=== PATIENT | female | born 1985 | race Hispanic/Latino ===

== ENCOUNTER → 2020-03-10 11:58 | Outpatient (CLI) | payer MEDICAID, SELFPAY ==
[2020-03-10 13:05] LABS: Add Manual Diff / Slide Review NO; Basophils Absolute Auto 0 /uL (0-100); Basophils Percent Auto 0.2 % (0-2); Eosinophils Absolute Auto 100 /uL (0-450); Eosinophils Percent Auto 1.4 % (2-4); Hematocrit 38.3 % (36-46); Hemoglobin 12.9 g/dL (12.0-16.0); Lymphocytes Absolute Auto 2000 /uL (1100-4500); Lymphocytes Percent Auto 24.3 % (25-40); Mean Corpuscular HGB Conc 33.6 % (30-36); Mean Corpuscular Hemoglobin 29.6 PG (26-34); Mean Corpuscular Volume 88.1 fL (80-100); Monocytes Absolute Auto 400 /uL (0-900); Monocytes Percent Auto 4.4 % (3-14); Neutrophils Absolute Auto 5700 /uL (1500-7000); Neutrophils Percent Auto 69.7 % (50-75); Platelet Count 186 X10^3/uL (150-400); Red Blood Cell Count 4.35 X10^6/uL (4.0-5.2); Red Cell Distribution Width 13.2 % (11.6-14.8); White Blood Cell Count 8.2 X10^3/uL (4.5-11.0)
[2020-03-10 13:38] LABS: Alanine Aminotransferase 12 IU/L (<35); Albumin Globulin Ratio 1.3 (1.0-2.8); Alkaline Phosphatase 70 U/L (38-126); Aspartate Aminotransferase 24 IU/L (14-36); BUN Creatinine Ratio 19.1 (6-22); Bilirubin Total 0.2 mg/dL (0.2-1.3); Blood Urea Nitrogen 9 mg/dL (7-17); Calcium 9.3 mg/dL (8.4-10.2); Carbon Dioxide 27 mmol/L (22-32); Chloride 103 mmol/L (98-107); Cholesterol 194 mg/dL (140-199); Estimated Glomerular Filt Rate > 60.0 mL/min (>60); Globulin 3.2 g/dL (1.7-4.1); Glucose 88 mg/dL (70-100); HDL Cholesterol 109 mg/dL (40-60); HEMOLYSIS < 15 (0-50); LDL Cholesterol Calculated 56 mg/dL (<100); Potassium 3.7 mmol/L (3.4-5.1); Sodium 134 mmol/L (137-145); Total Protein 7.2 g/dL (6.3-8.2); Triglycerides 143 mg/dL (35-150)
[2020-03-10 13:54] LABS: Free T4, Direct Thyroxine 1.05 ng/dL (0.78-2.19)
[2020-03-10 14:08] LABS: Thyroid Stimulating Hormone 0.637 uIU/mL (0.47-4.68)
[2020-03-10 15:09] LABS: HCG Quantitative /Beta subunit 132770 mIU/mL
== END ==
PROVIDERS: PCP Registered Nurse; Referring Provider Registered Nurse; Visit Provider Registered Nurse
DX: Z34.90 Encounter for supervision of normal pregnancy, unspecified, unspecified trimester (principal); Z13.220 Encounter for screening for lipoid disorders; R53.83 Other fatigue
CPT/HCPCS: 36415; 80053; 80061; 84439; 84443; 84702; 85025

== ENCOUNTER → 2020-03-24 13:10 | Outpatient (CLI) | payer MEDICAID, SELFPAY ==
[2020-03-24 14:05] LABS: Add Manual Diff / Slide Review NO; Basophils Absolute Auto 0 /uL (0-100); Basophils Percent Auto 0.3 % (0-2); Eosinophils Absolute Auto 200 /uL (0-450); Eosinophils Percent Auto 1.9 % (2-4); Hematocrit 38.7 % (36-46); Hemoglobin 12.9 g/dL (12.0-16.0); Lymphocytes Absolute Auto 2400 /uL (1100-4500); Lymphocytes Percent Auto 29.8 % (25-40); Mean Corpuscular HGB Conc 33.3 % (30-36); Mean Corpuscular Hemoglobin 29.5 PG (26-34); Mean Corpuscular Volume 88.6 fL (80-100); Monocytes Absolute Auto 400 /uL (0-900); Monocytes Percent Auto 4.8 % (3-14); Neutrophils Absolute Auto 5100 /uL (1500-7000); Neutrophils Percent Auto 63.2 % (50-75); Platelet Count 181 X10^3/uL (150-400); Red Blood Cell Count 4.36 X10^6/uL (4.0-5.2); Red Cell Distribution Width 13.4 % (11.6-14.8)
[2020-03-24 14:35] LABS: Appearance Urine UA CLEAR; Bilirubin Urine UA NEGATIVE (NEGATIVE); Color Urine UA YELLOW; Glucose Urine UA NEGATIVE (Negative); Ketones Urine UA NEGATIVE (NEGATIVE); Leukocyte Esterase Urine UA 1+ (NEGATIVE); Nitrite Urine UA NEGATIVE (Negative); Occult Blood Urine UA NEGATIVE (Negative); Protein Urine UA NEGATIVE (Negative); Specific Gravity Urine UA 1.015 (1.000-1.035); Urobilinogen Urine UA 0.2 E.U./dL (0.2)
[2020-03-24 14:42] LABS: Bacteria Urine None Seen; RBC Urine None Seen (0-5/HPF); pH Urine UA 5.5 (4.5-8.0)
[2020-03-24 14:44] LABS: Squamous Epithelial Cell Urine 5-10 /HPF (0-5/HPF); WBC Urine 5-10/HPF (0-5/HPF)
[2020-03-25 08:12] LABS: RPR Screen Non Reactive (Non Reactive)
[2020-03-26 03:37] LABS: Chlamydia trachomatis NAA Negative (Negative); Neisseria gonorrhoeae NAA Negative (Negative)
[2020-03-27 12:36] LABS: Varicella IgG Antibody >4000 index (Immune >165)
[2020-03-27 16:36] LABS: Hepatitis B Surface Antigen NEGATIVE s/c (NEGATIVE)
[2020-03-27 17:06] LABS: HIV 1 & 2 Ab/Ag 4th Gen Combo NEGATIVE (NEGATIVE); Hep C Virus Ab w/Reflex Quant NEGATIVE s/c (NEGATIVE)
== END ==
PROVIDERS: PCP Registered Nurse; Referring Provider Specialist; Visit Provider Specialist
DX: Z34.81 Encounter for supervision of other normal pregnancy, first trimester (principal)
CPT/HCPCS: 36415; 80055; 81003; 81015; 86787; 86803; 86850; 86900; 86901; 87086; 87389; 87491; 87591

== ENCOUNTER → 2020-04-25 11:45 | Outpatient (CLI) | payer MEDICAID, SELFPAY ==
[2020-04-27 21:54] LABS: AFP, Serum 76.7 ng/mL (.); Calc Gestational Age Ultrasound (.); Estriol, Free 2.49 ng/mL (.); Inhibin A, Dimeric 152.46 pg/mL (.); Inhibin A, MoM 0.68 (.); Maternal Ethnicity Other (.); Maternal Weight 98 lbs (.); Number of Fetuses No (.); OSBR Risk 1 IN 6301 (.); Results Report (.); Test Results *Screen Negative* (.); hCG, MoM 0.57 (.); hCG, Serum 20800 mIU/mL (.)
== END ==
PROVIDERS: PCP Registered Nurse; Referring Provider Specialist; Visit Provider Specialist
DX: Z34.82 Encounter for supervision of other normal pregnancy, second trimester (principal); Z3A.18 18 weeks gestation of pregnancy
CPT/HCPCS: 36415; 82105; 82677; 84702; 86336

== ENCOUNTER → 2020-05-23 12:37 | Outpatient (CLI) | payer MEDICAID, SELFPAY ==
--- NOTE | 2020-05-23 12:38 | DI.US.S_ITS ---
PROCEDURE: US OB >= 14 WEEKS FETUS INDICATIONS: 20 week anatomy OUTSIDE/PRIOR DATING DATA: Last menstrual period (LMP): 01/22/2020. LMP-based estimated date of delivery (CHASE): 10/28/2020 . First dating scan (date and location): 03/24/2020 . Estimated date of delivery (CHASE) from first dating scan: 09/22/2020 . TECHNIQUE: Real-time scanning was performed of the fetus, with image documentation and biometric measurements. Endovaginal scanning: No COMPARISON: [facility], , OB >= 14 WEEKS FETUS, 04/25/2020, 11:51. FINDINGS: General: A single living intrauterine gestation is present. Presentation: Variable. Placenta: Placental position is posterior , without previa. Amniotic fluid index: 20.2 cm, normal range is 5-24 cm. heart rate: 141 beats per minute. Maternal cervical canal: 3.4 cm long. Normal lower limit is 2.5 cm. biometrics: Biparietal diameter: 22 weeks 3 days Head circumference: 21 weeks 6 days Abdominal circumference: 22 weeks 1 day Femur length: 22 weeks Estimated gestational age from initial scan: 22 weeks 4 days Composite gestational age from present scan: 22 weeks 1 day Estimated weight and percentile: 473 g, 21st percentile Measurement variability for biometric dating: +/- 7 days from 14 weeks to 15 weeks 6 days gestation, +/- 10 days from 16 weeks to 21 weeks 6 days gestation, +/- 2 weeks from 22 weeks to 27 weeks 6 days gestation, +/- 3 weeks for 28 weeks gestation or later. weight reference: 4500 g or EFW >90/95% is considered macrosomia or large for gestational age. EFW <10% is small for gestational age. EFW 5% or less is considered intra-uterine growth restriction. Anatomic survey: Neuro: Ventricles are non-dilated at less than 10 mm. Cisterna magna is normal at 3-11 mm. Cerebellum is normal in size and morphology. Nuchal skin fold: Normal at less than 6 mm between 14-21 weeks gestational age. Face: Nose and lips, facial profile are normal. Spine: No evidence for spina bifida. Heart: 4-chambered heart is present, with normal ventricular outflow tracts. Diaphragm: Diaphragm is intact. Stomach: Left-sided stomach is present. Kidneys: No hydronephrosis. Normal is less than 5 mm in 2nd trimester, less than 7 mm in 3rd trimester. Cord: 3-vessel cord has orthotopic insertion. Bladder: Normal in size. Extremities: All 4 extremities identified. IMPRESSION: 1. Single living IUP redemonstrated and interval growth is normal. 2. Normal anatomic survey. Dictated by: Maury Wright [facility] Interpreted: Anup Lyons MD on 05/23/2020 at 17:21 Approved by: Anup Lyons M.D. on 05/23/2020 at 17:31
== END ==
PROVIDERS: PCP Registered Nurse; Referring Provider Specialist; Visit Provider Specialist
DX: Z34.82 Encounter for supervision of other normal pregnancy, second trimester (principal); Z3A.22 22 weeks gestation of pregnancy
CPT/HCPCS: 76811

== ENCOUNTER → 2020-06-20 10:19 | Outpatient (CLI) | payer MEDICAID, SELFPAY ==
[2020-06-20 11:50] LABS: Hematocrit 34.2 % (36-46); Hemoglobin 11.8 g/dL (12.0-16.0)
[2020-06-20 12:34] LABS: GTT (PREG) 1 Hour PP 50gm Dose 194 mg/dL (76-139)
== END ==
PROVIDERS: PCP Registered Nurse; Referring Provider Specialist; Visit Provider Specialist
DX: Z34.82 Encounter for supervision of other normal pregnancy, second trimester (principal); Z3A.25 25 weeks gestation of pregnancy
CPT/HCPCS: 36415; 82950; 85014; 85018

== ENCOUNTER → 2020-06-28 09:43 | Outpatient (CLI) | payer MEDICAID, SELFPAY ==
[2020-06-28 11:08] LABS: Glucose Fasting Gestational 86 mg/dL (76-95)
[2020-06-28 12:05] LABS: Glucose 1 Hour Gest 127 mg/dL (76-180)
[2020-06-28 13:08] LABS: Glucose 2 Hour Gest 106 mg/dL (76-155)
[2020-06-28 13:18] LABS: Glucose Tol Interp,Gestational INTERPRETATION
[2020-06-28 14:17] LABS: Glucose 3 Hour Gest 103 mg/dL (76-140)
== END ==
PROVIDERS: PCP Registered Nurse; Referring Provider Specialist; Visit Provider Specialist
DX: O99.810 Abnormal glucose complicating pregnancy (principal)
CPT/HCPCS: 36415; 82951; 82952

== ENCOUNTER 2020-07-11 13:32 | Inpatient (IN) | payer MEDICAID, SELFPAY ==
[2020-07-11] MEDS: NIFEdipine 10 MG CAPSULE PO ×4 (14:10→15:09)
[2020-07-11 14:38] LABS: Fetal Fibronectin Negative
[2020-07-11 14:39] LABS: Add Manual Diff / Slide Review NO; Basophils Absolute Auto 100 /uL (0-100); Basophils Percent Auto 0.5 % (0-2); Eosinophils Absolute Auto 0 /uL (0-450); Eosinophils Percent Auto 0.3 % (2-4); Hematocrit 37.8 % (36-46); Hemoglobin 12.7 g/dL (12.0-16.0); Lymphocytes Absolute Auto 1700 /uL (1100-4500); Lymphocytes Percent Auto 14.6 % (25-40); Mean Corpuscular HGB Conc 33.5 % (30-36); Mean Corpuscular Hemoglobin 29.3 PG (26-34); Mean Corpuscular Volume 87.5 fL (80-100); Monocytes Absolute Auto 900 /uL (0-900); Monocytes Percent Auto 7.6 % (3-14); Neutrophils Absolute Auto 9100 /uL (1500-7000); Platelet Count 168 X10^3/uL (150-400); Red Blood Cell Count 4.32 X10^6/uL (4.0-5.2); Red Cell Distribution Width 12.7 % (11.6-14.8); White Blood Cell Count 11.8 X10^3/uL (4.5-11.0)
--- NOTE | 2020-07-11 14:57 | P.TNLD_ITS ---
Visit Information Visit Information Date of evaluation: 07/11/20 Primary OB Provider: Tara Schaeffer Reason for Evaluation: Yes pre-term labor Vital Signs Vital Signs: Blood pressure 109/71, pulse 96, temperature 36.4? [facility] Family History (Updated 03/17/20 @ 12:42 by Kay Alonzo RN) Mother No problems noted. Father Family estrangement Grandmother Cancer Grandfather Cancer Smoker Grandmother No problems noted. Grandfather Family estrangement Social History marital status: unmarried,living together number of children: 2 household members: significant other and children lives independently: Yes caregiver/support person: No housing: house pets and animals: Yes (2 turtles & 1 dog: safe & calm.) education level: other (did not go to school.) occupational status: unemployed current occupational exposures/hazards: No special luiza needs: No seatbelt use: always Smoking Status: Never smoker second hand exposure: No alcohol intake: never substance use type: does not use during the past year weight has: remained stable well-balanced diet: daily or most days caffeine: Yes (only small cup coffee daily. ) frequency: does not exercise Review of Systems Review of Systems Narrative: Patient complains of back pain, abdominal pain, cramping, 7/10. No vaginal bleeding. Good movement. Exam Narrative Exam Narrative: Patient has some mild CVA tenderness. She states the pain ra diates from her back around to her front on the right side. She has some mild tenderness to her uterus. Normal external genitalia. Cervix is long, closed, presenting part is high, no blood in the vaginal vault. Objective Labs Result Diagrams: 07/11/20 15:15 Labs: Laboratory Results - last 24 hr 07/11/20 07/11/20 14:00 15:15 WBC 11.8 H RBC 4.32 Hgb 12.7 Hct 37.8 MCV 87.5 MCH 29.3 MCHC 33.5 RDW 12.7 Plt Count 168 Neut % (Auto) 77.0 H Lymph % (Auto) 14.6 L [place] % (Auto) 7.6 Eos % (Auto) 0.3 L Baso % (Auto) 0.5 Neut # (Auto) 9100 H Lymph # (Auto) 1700 [place] # (Auto) 900 Eos # (Auto) 0 Baso # (Auto) 100 Fibronectin Negative Evaluation Evaluation Baseline heart rate: 150 Variability: Moderate (11-25) monitor accelerations: Present Monitor Decelerations: Absent Contraction Frequency (minutes): 5 Uterine Contraction Intensity: Moderate Status: Category l Cervical dilation (cm): 0 Cervical effacement (%): 0 station: -4 Laboratory results: Laboratory Tests 07/11/20 07/11/20 14:00 15:15 WBC 11.8 H RBC 4.32 Hgb 12.7 Hct 37.8 MCV 87.5 MCH 29.3 MCHC 33.5 RDW 12.7 Plt Count 168 Neut % (Auto) 77.0 H Lymph % (Auto) 14.6 L [place] % (Auto) 7.6 Eos % (Auto) 0.3 L Baso % (Auto) 0.5 Neut # (Auto) 9100 H Lymph # (Auto) 1700 [place] # (Auto) 900 Eos # (Auto) 0 Baso # (Auto) 100 Fibronectin Negative Diagnosis, Plan/Disposition Final Diagnosis (1) 29 weeks gestation of : Status: Acute (2) Pyelonephritis: Status: Acute Plan/Disposition Plan: Patient appears to have pyelonephritis. She will be admitted for IV antibiotics. Monitor for worsening symptoms. OB Disposition: admit to hospital
[2020-07-11 15:23] LABS: Appearance Urine UA SL CLOUDY; Bilirubin Urine UA NEGATIVE (NEGATIVE); Color Urine UA YELLOW; Glucose Urine UA NEGATIVE (Negative); Ketones Urine UA 1+ (NEGATIVE); Leukocyte Esterase Urine UA 2+ (NEGATIVE); Nitrite Urine UA NEGATIVE (Negative); Occult Blood Urine UA 3+ (Negative); Protein Urine UA NEGATIVE (Negative); Urobilinogen Urine UA 0.2 E.U./dL (0.2)
[2020-07-11 15:37] LABS: Amorphous Sediment Urine 2+; Bacteria Urine Moderate (10-30); Culture Indicated Urine Specimen Cultured; RBC Urine 1-5/HPF (0-5/HPF); Squamous Epithelial Cell Urine 1-5 /HPF (0-5/HPF); WBC Urine 30-100/HPF (0-5/HPF)
--- NOTE | 2020-07-11 15:58 | DI.US.S_ITS ---
PROCEDURE: US RENAL COMPLETE INDICATIONS: 29 week female. abdominal pain probable pyelonephritis r/o obstruction. TECHNIQUE: Real-time scanning was performed of the kidneys and bladder, with image documentation. COMPARISON: [facility], US, US OB >= 14 WEEKS FETUS, 05/23/2020, 12:46. FINDINGS: Kidneys: Kidneys are normal in size. Right kidney measures 9.5 cm long; left kidney measures 10.2 cm long. Right renal cortical thickness is 1.4 cm; left renal cortical thickness is 1.4 cm. Renal cortical echotexture is normal. Mild to moderate bilateral hydronephrosis of . No suspicious solid mass lesions. Bladder: Pre-void bladder volume is 487 mL. Post-void residual is 24 mL. Pre-void images demonstrate no intraluminal masses or stones. On pre-void images, bilateral ureteral jets are noted with color Doppler interrogation. (Of note, ureteral jets may not be detectable in up to 25% of cases due to insufficient differences in specific gravity between ureteral and bladder urine). Miscellaneous: No free pelvic fluid. IMPRESSION: [id number] bilateral hydronephrosis of . Bilateral ureteral jets are identified. Dictated by: Zheng Bradley M.D. on 07/11/2020 at 17:35 Approved by: Zheng Bradley M.D. on 07/11/2020 at 17:37
--- NOTE | 2020-07-11 16:07 | PM.OBHP.1 ---
OB HPI Date/Time Date of admission: 07/11/20 Date Patient Seen: 07/11/20 Time Patient Seen: 16:08 History of Present Condition Chief complaint: NST : 3 Para: 2 Estimated Date of Delivery: 09/22/20 Estimated Gestational Age (weeks): 29 Narrative: Janel Bauer is a 34 year old female admitted for pyelonephritis at 29 weeks Indications Other reason(s) for admission: Pyelonephritis History of Present care: limited care, initiated at week # (14) and number of visits (4) Dating criteria: based on 2nd trimester US only Ultrasounds: normal mid trimester US Obstetrical complications: none Preadmission Labs Blood type: O (+) positive -: Antibody screen: negative, HBsAG: negative, HIV: negative and RPR/VDLR: negative -: Chlamydia screen: not detected and Gonorrhea screen: not detected -: Rubella: immune and Varicella: immune Narrative: Elevated 1 hour glucose with normal 3 hour GTT Evaluation Evaluation Baseline heart rate: 145 Variability: Moderate (11-25) monitor accelerations: Present Monitor Decelerations: Absent Contraction Frequency (minutes): 5 Uterine Contraction Intensity: Mild Status: Category l Cervical dilation (cm): 0 Cervical effacement (%): 0 station: -4 Laboratory results: Laboratory Tests 07/11/20 07/11/20 07/11/20 14:00 14:50 15:15 WBC 11.8 H RBC 4.32 Hgb 12.7 Hct 37.8 MCV 87.5 MCH 29.3 MCHC 33.5 RDW 12.7 Plt Count 168 Neut % (Auto) 77.0 H Lymph % (Auto) 14.6 L [place] % (Auto) 7.6 Eos % (Auto) 0.3 L Baso % (Auto) 0.5 Neut # (Auto) 9100 H Lymph # (Auto) 1700 [place] # (Auto) 900 Eos # (Auto) 0 Baso # (Auto) 100 Urine Color Yellow Urine Appearance Sl cloudy Urine pH 6.0 Ur Specific [place] 1.010 Urine Protein Negative Urine Glucose (UA) Negative Urine Ketones 1+ H Urine Occult Blood 3+ H Urine Nitrate Negative Urine Bilirubin Negative Urine Urobilinogen 0.2 Ur Leukocyte Esterase 2+ H Urine RBC 1-5/hpf Urine WBC 30-100/hpf H Ur Squamous Epith Cells 1-5 /hpf Amorphous Sediment 2+ Urine Bacteria Moderate (10-30) H Ur Culture Indicated? Specimen cultured Fibronectin Negative PFSH Family History (Updated 03/17/20 @ 12:42 by Kay Alonzo RN) Mother No problems noted. Father Family estrangement Grandmother Cancer Grandfather Cancer Smoker Grandmother No problems noted. Grandfather Family estrangement Social History marital status: unmarried,living together number of children: 2 household members: significant other and children lives independently: Yes caregiver/support person: No housing: house pets and animals: Yes (2 turtles & 1 dog: safe & calm.) education level: other (did not go to school.) occupational status: unemployed current occupational exposures/hazards: No special luiza needs: No seatbelt use: always Smoking Status: Never smoker second hand exposure: No alcohol intake: never substance use type: does not use during the past year weight has: remained stable well-balanced diet: daily or most days caffeine: Yes (only small cup coffee daily. ) frequency: does not exercise Meds Home Medications and Allergies Home Medications Medication Instructions Recorded Confirmed Type prenat.vits,oleksandr,ddo-xyes-phkcb 1 tab PO DAILY #90 tab 03/17/20 06/20/20 Rx Allergies Allergy/AdvReac Type Severity Reaction Status Date / Time No Known Drug Allergies Allergy Verified 07/11/20 14:00 Review of Systems Review of Systems Narrative: Patient with back pain on the right coming around to the front with abdominal pain. Patient feeling cramping. No bleeding. Good movement. Mild headache. No nausea or vomiting. No fevers. Exam Vital Signs (past 8 hours): Blood pressure 109/71, pulse of 96, temperature 36.4? Narrative Exam Narrative: HEENT exam within normal limits. Lungs are clear to auscultation percussion. Heart is regular rate and rhythm no S3-S4 murmurs. Patient has CVA tenderness. Her abdomen is soft with tenderness throughout. Cervix is long, closed, high. Extremities without edema and nontender Objective Labs Result Diagrams: 07/11/20 15:15 Labs: Laboratory Results - last 24 hr 07/11/20 07/11/20 07/11/20 14:00 14:50 15:15 WBC 11.8 H RBC 4.32 Hgb 12.7 Hct 37.8 MCV 87.5 MCH 29.3 MCHC 33.5 RDW 12.7 Plt Count 168 Neut % (Auto) 77.0 H Lymph % (Auto) 14.6 L [place] % (Auto) 7.6 Eos % (Auto) 0.3 L Baso % (Auto) 0.5 Neut # (Auto) 9100 H Lymph # (Auto) 1700 [place] # (Auto) 900 Eos # (Auto) 0 Baso # (Auto) 100 Urine Color Yellow Urine Appearance Sl cloudy Urine pH 6.0 Ur Specific [place] 1.010 Urine Protein Negative Urine Glucose (UA) Negative Urine Ketones 1+ H Urine Occult Blood 3+ H Urine Nitrate Negative Urine Bilirubin Negative Urine Urobilinogen 0.2 Ur Leukocyte Esterase 2+ H Urine RBC 1-5/hpf Urine WBC 30-100/hpf H Ur Squamous Epith Cells 1-5 /hpf Amorphous Sediment 2+ Urine Bacteria Moderate (10-30) H Ur Culture Indicated? Specimen cultured Fibronectin Negative Assessment and Plan Assessment and Plan Assessment and Plan narrative: 29 week gestation with pyelonephritis. Patient will be admitted for IV antibiotics and monitoring for labor and worsening infection.
[2020-07-11] MEDS: LACTATED RINGERS 1,000 ML 125 ML IV (16:11)
[2020-07-11] MEDS: CEFTRIAXONE 1 GM/50 ML FROZ.PIGGY IV (16:20)
[2020-07-11 18:21] LABS: Lactate (Lactic Acid) 1.7 mmol/L (0.7-2.1)
[2020-07-11 18:37] LABS: Procalcitonin 0.05 ng/mL (<0.5)
[2020-07-12] MEDS: LACTATED RINGERS 1,000 ML 125 ML IV ×4 (00:09→23:54)
--- NOTE | 2020-07-12 07:53 | P.PN_ITS ---
Subjective Subjective Date Patient Seen: 07/12/20 Time Patient Seen: 07:53 Interval history: Patient admitted for pyelonephritis at 29 weeks. She has remained afebrile. She still has a mild headache and right flank pain but has decreased her pain to 2. Exam Vital Signs (past 8 hours): blood pressure 89/50, pulse 73, temperature 35.9? Narrative Exam Narrative: Patient still has some mild CVA tenderness. Patient has some mild uterine tenderness. Extremities without edema and nontender. Objective Imaging US - abdomen: Radiologist's impression: bilateral moderate hydronephrosis with no obstruction Labs Result Diagrams: 07/11/20 15:15 Labs: Laboratory Results - last 24 hr 07/11/20 07/11/20 07/11/20 14:00 14:50 15:15 WBC 11.8 H RBC 4.32 Hgb 12.7 Hct 37.8 MCV 87.5 MCH 29.3 MCHC 33.5 RDW 12.7 Plt Count 168 Neut % (Auto) 77.0 H Lymph % (Auto) 14.6 L [place] % (Auto) 7.6 Eos % (Auto) 0.3 L Baso % (Auto) 0.5 Neut # (Auto) 9100 H Lymph # (Auto) 1700 [place] # (Auto) 900 Eos # (Auto) 0 Baso # (Auto) 100 Lactate Procalcitonin Urine Color Yellow Urine Appearance Sl cloudy Urine pH 6.0 Ur Specific [place] 1.010 Urine Protein Negative Urine Glucose (UA) Negative Urine Ketones 1+ H Urine Occult Blood 3+ H Urine Nitrate Negative Urine Bilirubin Negative Urine Urobilinogen 0.2 Ur Leukocyte Esterase 2+ H Urine RBC 1-5/hpf Urine WBC 30-100/hpf H Ur Squamous Epith Cells 1-5 /hpf Amorphous Sediment 2+ Urine Bacteria Moderate (10-30) H Ur Culture Indicated? Specimen cultured Fibronectin Negative 07/11/20 07/11/20 17:56 17:56 WBC RBC Hgb Hct MCV MCH MCHC RDW Plt Count Neut % (Auto) Lymph % (Auto) [place] % (Auto) Eos % (Auto) Baso % (Auto) Neut # (Auto) Lymph # (Auto) [place] # (Auto) Eos # (Auto) Baso # (Auto) Lactate 1.7 Procalcitonin 0.05 Urine Color Urine Appearance Urine pH Ur Specific [place] Urine Protein Urine Glucose (UA) Urine Ketones Urine Occult Blood Urine Nitrate Urine Bilirubin Urine Urobilinogen Ur Leukocyte Esterase Urine RBC Urine WBC Ur Squamous Epith Cells Amorphous Sediment Urine Bacteria Ur Culture Indicated? Fibronectin PFSH Family History (Updated 03/17/20 @ 12:42 by Kay Alonzo RN) Mother No problems noted. Father Family estrangement Grandmother Cancer Grandfather Cancer Smoker Grandmother No problems noted. Grandfather Family estrangement Social History marital status: unmarried,living together number of children: 2 household members: significant other and children lives independently: Yes caregiver/support person: No housing: house pets and animals: Yes (2 turtles & 1 dog: safe & calm.) education level: other (did not go to school.) occupational status: unemployed current occupational exposures/hazards: No special luiza needs: No seatbelt use: always Smoking Status: Never smoker second hand exposure: No alcohol intake: never substance use type: does not use during the past year weight has: remained stable well-balanced diet: daily or most days caffeine: Yes (only small cup coffee daily. ) frequency: does not exercise Assessment & Plan Assessment & Plan narrative: 29 week gestation with pyelonephritis receiving IV antibiotics. Pain is improving.
[2020-07-12] MEDS: ACETAMINOPHEN 325 MG TABLET 650 MG PO (09:38)
[2020-07-12] MEDS: CEFTRIAXONE 1 GM/50 ML FROZ.PIGGY IV (16:20)
--- NOTE | 2020-07-12 18:31 | P.PN_ITS ---
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 Patient states her pain is significantly improved. She had a mild headache but no scotomata or epigastric pain. No further back or abdominal pain. Good movement. No leakage of fluid. No vaginal bleeding. Exam Vital Signs (past 8 hours): Blood pressure 104/60, pulse 77, temperature 36.5? Narrative Exam Narrative: No CVA tenderness. Abdomen is soft with trace tenderness. Nonstress test is reassuring, category 1 tracing. No contractions. Objective Labs Result Diagrams: 07/11/20 15:15 Labs: Laboratory Results - last 24 hr 07/11/20 17:56 Procalcitonin 0.05 PFSH Family History (Updated 03/17/20 @ 12:42 by Kay Alonzo RN) Mother No problems noted. Father Family estrangement Grandmother Cancer Grandfather Cancer Smoker Grandmother No problems noted. Grandfather Family estrangement Social History marital status: unmarried,living together number of children: 2 household members: significant other and children lives independently: Yes caregiver/support person: No housing: house pets and animals: Yes (2 turtles & 1 dog: safe & calm.) education level: other (did not go to school.) occupational status: unemployed current occupational exposures/hazards: No special luiza needs: No seatbelt use: always Smoking Status: Never smoker second hand exposure: No alcohol intake: never substance use type: does not use during the past year weight has: remained stable well-balanced diet: daily or most days caffeine: Yes (only small cup coffee daily. ) frequency: does not exercise Assessment & Plan Assessment and plan (1) Pyelonephritis: Status: Acute Assessment & Plan narrative: Patient 29 weeks with pyelonephritis improving with IV antibiotics. Likely home tomorrow if continuing to improve.
[2020-07-13 07:21] LABS: Add Manual Diff / Slide Review NO; Basophils Absolute Auto 0 /uL (0-100); Basophils Percent Auto 0.3 % (0-2); Eosinophils Absolute Auto 100 /uL (0-450); Eosinophils Percent Auto 2.1 % (2-4); Hematocrit 29.6 % (36-46); Lymphocytes Absolute Auto 1900 /uL (1100-4500); Lymphocytes Percent Auto 28.2 % (25-40); Mean Corpuscular HGB Conc 33.7 % (30-36); Mean Corpuscular Hemoglobin 29.9 PG (26-34); Mean Corpuscular Volume 88.7 fL (80-100); Monocytes Absolute Auto 500 /uL (0-900); Monocytes Percent Auto 8.1 % (3-14); Neutrophils Absolute Auto 4100 /uL (1500-7000); Neutrophils Percent Auto 61.3 % (50-75); Platelet Count 144 X10^3/uL (150-400); Red Blood Cell Count 3.34 X10^6/uL (4.0-5.2); Red Cell Distribution Width 12.4 % (11.6-14.8); White Blood Cell Count 6.6 X10^3/uL (4.5-11.0)
--- NOTE | 2020-07-13 07:35 | P.DS_ITS ---
History of Present Illness History of Present Illness Date Patient Seen: 07/13/20 Time Patient Seen: 07:40 Date of Onset of Symptoms: 07/10/20 Chief complaint: NST Narrative: Patient admitted for IV antibiotics for pyelonephritis at 29 weeks. Discharge Providers Provider Date of admission: 07/11/20 13:32 Discharge Date: 07/13/20 Primary care physician: ISAMAR Reza Discharge provider: Tara Schaeffer MD Summary Hospital Course Discharge Diagnosis: 29 week gestation with pyelonephritis, anemia Hospital Course: Patient admitted for IV antibiotics for pyelonephritis at 29 weeks. She had significant pain which resolved. She remained afebrile throughout the hospitalization. White blood cell count decreased. Status at Discharge Cognitive/behavioral status at discharge: oriented Functional status at discharge: independent ambulation Overall status at discharge: patient is progressing back to baseline Time Spent with Patient Time spent: Less than 30 minutes Exam Narrative Exam Narrative: No CVA tenderness. Abdomen is soft, nontender. heart tones reactive. No contractions on monitor. Extremities without edema and nontender. Objective Labs Result Diagrams: 07/13/20 06:42 Labs: Laboratory Results - last 24 hr 07/13/20 06:42 WBC 6.6 RBC 3.34 L Hgb 10.0 L Hct 29.6 L MCV 88.7 MCH 29.9 MCHC 33.7 RDW 12.4 Plt Count 144 L Neut % (Auto) 61.3 Lymph % (Auto) 28.2 [place] % (Auto) 8.1 Eos % (Auto) 2.1 Baso % (Auto) 0.3 Neut # (Auto) 4100 Lymph # (Auto) 1900 [place] # (Auto) 500 Eos # (Auto) 100 Baso # (Auto) 0 PFSH Family History (Updated 03/17/20 @ 12:42 by Kay Alonzo RN) Mother No problems noted. Father Family estrangement Grandmother Cancer Grandfather Cancer Smoker Grandmother No problems noted. Grandfather Family estrangement Social History marital status: unmarried,living together number of children: 2 household members: significant other and children lives independently: Yes caregiver/support person: No housing: house pets and animals: Yes (2 turtles & 1 dog: safe & calm.) education level: other (did not go to school.) occupational status: unemployed current occupational exposures/hazards: No special luiza needs: No seatbelt use: always Smoking Status: Never smoker second hand exposure: No alcohol intake: never substance use type: does not use during the past year weight has: remained stable well-balanced diet: daily or most days caffeine: Yes (only small cup coffee daily. ) frequency: does not exercise Discharge Assessment & Plan Assessment and Plan Assessment: 29 week gestation with pyelonephritis improved pain kee after 48 hours of IV antibiotics. Anemia likely from poor intake. Plan of Treatment: Patient will be discharged home on oral Macrodantin which her E coli infection is sensitive to. Patient will also be started on iron for her anemia Discharge Plan Discharge Plan Patient Disposition: Home Discharge orders & Medications Prescriptions: New nitrofurantoin macrocrystal [Macrodantin] 100 mg capsule 100 mg PO BID Qty: 20 RF: 0 ferrous sulfate 325 mg (65 mg iron) Tablet 325 mg PO BIDWM Qty: 60 RF: 0 ferrous gluconate 324 mg (37.5 mg iron) tablet 648 mg PO BID Qty: 60 RF: 1 Continued prenat.vits,oleksandr,[id number] Tablet 1 tab PO DAILY Qty: 90 RF: 3 Follow up/Referrals: Tara Schaeffer MD [Physician] - 2 Weeks Aubrie Abdi ARNP [Primary Care Provider] - Diet/Activity/Treatments Diet: Regular Skin/Wound/Dressing Care Report to your healthcare provider any signs of infection, such as:: chills, fever and increased pain Discharge Data Primary Care Provider: Aubrie Abdi Attending Provider: Tara Schaeffer
[2020-07-13] MEDS: ACETAMINOPHEN 325 MG TABLET 650 MG PO (08:01)
[2020-07-13] MEDS: NITROFURANTOIN ER 100 MG CAPSULE PO (09:44)
== END 2020-07-13 09:45 | disposition home or self-care (01) | DRG 833 ==
PROVIDERS: Admitting Provider Specialist; PCP Registered Nurse; Referring Provider Specialist; Visit Provider Specialist
DX: O23.03 Infections of kidney in pregnancy, third trimester (principal); B96.20 Unspecified Escherichia coli [E. coli] as the cause of diseases classified elsewhere; O99.013 Anemia complicating pregnancy, third trimester; Z3A.29 29 weeks gestation of pregnancy; D64.9 Anemia, unspecified
CPT/HCPCS: 36415; 76770; 81003; 81015; 82731; 83605; 84145; 85025; 87077; 87086; 87186; 99222; 99232; 99238; G0378; G0379

== ENCOUNTER → 2020-08-24 09:40 | Outpatient (CLI) | payer MEDICAID, SELFPAY ==
[2020-08-25 10:07] LABS: Strep Grp B PCR NEG for Grp B Strep
== END ==
PROVIDERS: PCP Registered Nurse; Referring Provider Specialist; Visit Provider Specialist
DX: Z34.83 Encounter for supervision of other normal pregnancy, third trimester (principal); Z3A.35 35 weeks gestation of pregnancy
CPT/HCPCS: 87653

== ENCOUNTER 2020-09-07 11:07 | Outpatient (CLI) | payer MEDICAID, SELFPAY | END 2020-09-07 12:31 | disposition home or self-care (01) | LOC: LABOR 12:27 → OB 09-13 15:02 | PROVIDERS: PCP Registered Nurse; Referring Provider Specialist; Visit Provider Specialist | DX: O09.523 Supervision of elderly multigravida, third trimester (principal); Z3A.37 37 weeks gestation of pregnancy | CPT/HCPCS: 59025; 76815; G0378; G0379 ==

== ENCOUNTER 2020-09-15 09:32 | Inpatient (IN) | payer MEDICAID, SELFPAY ==
[2020-09-15 10:43] LABS: Add Manual Diff / Slide Review NO; Basophils Absolute Auto 0 /uL (0-100); Basophils Percent Auto 0.5 % (0-2); Eosinophils Absolute Auto 100 /uL (0-450); Eosinophils Percent Auto 1.4 % (2-4); Hematocrit 38.9 % (36-46); Lymphocytes Absolute Auto 2200 /uL (1100-4500); Lymphocytes Percent Auto 30.3 % (25-40); Mean Corpuscular HGB Conc 33.3 % (30-36); Mean Corpuscular Hemoglobin 28.6 PG (26-34); Mean Corpuscular Volume 85.8 fL (80-100); Monocytes Absolute Auto 400 /uL (0-900); Monocytes Percent Auto 5.7 % (3-14); Neutrophils Absolute Auto 4400 /uL (1500-7000); Neutrophils Percent Auto 62.1 % (50-75); Platelet Count 132 X10^3/uL (150-400); Red Blood Cell Count 4.53 X10^6/uL (4.0-5.2); Red Cell Distribution Width 14.1 % (11.6-14.8); White Blood Cell Count 7.1 X10^3/uL (4.5-11.0)
[2020-09-15] MEDS: OXYTOCIN PREMIX 30 UNIT/500 ML PLAST..BAG IV (10:55)
[2020-09-15] MEDS: LACTATED RINGERS 1,000 ML 100 ML IV (10:55)
--- NOTE | 2020-09-15 10:59 | P.HPOB_ITS ---
OB HPI Date/Time Date of admission: 09/15/20 Date Patient Seen: 09/15/20 Time Patient Seen: 11:00 History of Present Condition Chief complaint: INDUCTION : 3 Para: 2 Estimated Date of Delivery: 09/22/20 Estimated Gestational Age (weeks): 39 Narrative: Janel Arias is a 34 year old female admitted for induction at 39 weeks due to distance from the hospital Indications Indication for induction OB: maternal distance History of Present care: good care, initiated at week # (14), number of visits (9) and pounds weight gain (24) Dating criteria: based on 2nd trimester US only Ultrasounds: normal mid trimester US Obstetrical complications: none Medical complications: none Preadmission Labs Blood type: O (+) positive -: Antibody screen: negative, GBS status: negative, HBsAG: negative, HIV: negative and RPR/VDLR: negative -: Chlamydia screen: not detected and Gonorrhea screen: not detected -: Rubella: immune and Varicella: immune HCAB: negative Quad screen: Normal 1 hr GTT: 194 3 hr GTT: 1 hr (127), 2 hr (106) and 3 hr (103) Fasting blood glucose: 86 Prior (ies) History: 12/22/2003 36 week gestation female weighing 8 lb 12 oz vaginal delivery 07/16/06 40 week gestation vaginal delivery female weight not remembered Evaluation Evaluation Baseline heart rate: 130 Variability: Moderate (11-25) monitor accelerations: Present Monitor Decelerations: Absent Contraction Frequency (minutes): 10 Uterine Contraction Intensity: Mild Category of Tracing: Reactive Status: Category l Cervical dilation (cm): 4 Cervical effacement (%): 85 station: -1 Laboratory results: Laboratory Tests 09/15/20 10:30 WBC 7.1 RBC 4.53 Hgb 13.0 Hct 38.9 MCV 85.8 MCH 28.6 MCHC 33.3 RDW 14.1 Plt Count 132 L Neut % (Auto) 62.1 Lymph % (Auto) 30.3 [place] % (Auto) 5.7 Eos % (Auto) 1.4 L Baso % (Auto) 0.5 Neut # (Auto) 4400 Lymph # (Auto) 2200 [place] # (Auto) 400 Eos # (Auto) 100 Baso # (Auto) 0 PFSH Family History (Updated 03/17/20 @ 12:42 by Kay Alonzo RN) Mother No problems noted. Father Family estrangement Grandmother Cancer Grandfather Cancer Smoker Grandmother No problems noted. Grandfather Family estrangement Social History marital status: unmarried,living together number of children: 2 household members: significant other and children lives independently: Yes caregiver/support person: No housing: house pets and animals: Yes (2 turtles & 1 dog: safe & calm.) education level: other (did not go to school.) occupational status: unemployed current occupational exposures/hazards: No special luiza needs: No seatbelt use: always Smoking Status: Never smoker second hand exposure: No alcohol intake: never substance use type: does not use during the past year weight has: remained stable well-balanced diet: daily or most days caffeine: Yes (only small cup coffee daily. ) frequency: does not exercise Meds Home Medications and Allergies Home Medications Medication Instructions Recorded Confirmed Type ferrous sulfate 325 mg (65 mg 325 mg PO BIDWM #60 tab 07/13/20 08/24/20 Rx iron) tablet sertraline 50 mg tablet 50 mg PO DAILY #30 tab 07/27/20 08/24/20 Rx prenat.vits,oleksandr,vlm-orkc-fmejt 1 tab PO DAILY #90 tab 07/28/20 08/24/20 Rx omeprazole 40 mg capsule,delayed 40 mg PO DAILY #30 cap 08/09/20 08/24/20 Rx release Allergies Allergy/AdvReac Type Severity Reaction Status Date / Time No Known Drug Allergies Allergy Verified 07/11/20 14:00 Review of Systems Review of Systems Narrative: Patient denies headaches, scotomata, epigastric pain. Good movement. No leakage of fluid. No regular contractions. ROS: Yes All systems reviewed with the patient and are negative except as otherwise documented Exam Vital Signs (past 8 hours): Blood pressure 113/73, pulse 73, temperature 96.7? Narrative Exam Narrative: HEENT exam within normal limits. Lungs are clear to auscultation and percussion. Heart is regular rate and rhythm no S3-S4 murmurs. Abdomen is gravid, nontender. Fetus is vertex. Extremities without edema and nontender. Objective Labs Result Diagrams: 09/15/20 10:30 Labs: Laboratory Results - last 24 hr 09/15/20 10:30 WBC 7.1 RBC 4.53 Hgb 13.0 Hct 38.9 MCV 85.8 MCH 28.6 MCHC 33.3 RDW 14.1 Plt Count 132 L Neut % (Auto) 62.1 Lymph % (Auto) 30.3 [place] % (Auto) 5.7 Eos % (Auto) 1.4 L Baso % (Auto) 0.5 Neut # (Auto) 4400 Lymph # (Auto) 2200 [place] # (Auto) 400 Eos # (Auto) 100 Baso # (Auto) 0 Assessment and Plan Assessment and Plan Assessment and Plan narrative: 39 week gestation here for induction for distance from the hospital. Pitocin will be begun. Pain medicine as needed.
[2020-09-15 13:19] LABS: COVID19 - ADMIT (NP swab/PCR) Negative (Negative)
[2020-09-15 16:49] VITALS: BP 123/79
--- NOTE | 2020-09-15 18:58 | PM.OBPRVD ---
Labor & Delivery Delivery date: 09/15/20 Intrapartal Events: None Induction method: per pitocin protocol Delivery augmentation: rupture of membranes Delivery monitor: external FHT and external uterine Route of delivery: L&D Laceration Description: Perineal - 1st Degree Delivery repair: chromic (3 0) Estimated blood loss (mL): 300 Anesthesia Type: Local (20 cc 1% lidocaine For repair) Narrative: Patient arrived on Labor and delivery for induction for distance from the hospital. She was not aaliyah but already 4 cm dilated. She was started on Pitocin. heart tones category 1 to category 2 throughout labor. The patient was found to be and had a spontaneous vaginal delivery. The viable female was placed on the maternal abdomen. After the cord stopped pulsating the cord was clamped, cut, and cord bloods obtained. The placenta delivered spontaneously, intact, with 3 vessels. There were no cervical or vaginal tears. There is a first-degree midline perineal tear that was injected with 20 cc of lidocaine and repaired with 3 0 chromic suture. Both infant mother doing well. [place] Baby 1: Infant gender: Female Presentation: vertex Position: Right Occiput Anterior Placenta delivery description: Spontaneous Cord Vessel Description: 3 Vessels score (1 min): 9 score (5 min): 9 weight: 7 lb 4 oz Plan for aftercare: Routine care
[2020-09-15 20:41] VITALS: TEMP 36.3
[2020-09-15] MEDS: IBUPROFEN 600 MG TABLET PO (20:41)
--- NOTE | 2020-09-16 | PATH_ITS ---
[facility] Accession Number: [id number] . 01 Material submitted: . fallopian tube - BILATERAL FALLOPIAN TUBES . 01 Clinical history: . INDUCTION . 02 Diagnosis: Bilateral Fallopian Tubes, Bilateral Salpingectomy: Complete cross-sections of fallopian tubes x 2 with a benign paratubal cyst (5 mm, associated with the shorter tube); negative for atypia or malignancy. MRV 09/20/2020 1429 Local . 02 Electronically signed: . Melissa Greene MD, Pathologist NPI- [id number] . 01 Gross description: . The specimen is received in formalin, labeled bilateral fallopian tubes and consists of two fallopian tubes measuring 3.2 cm in length by 0.6 cm in diameter and 4.0 cm in length by 0.6 cm in diameter. The serosa is carty-pink and smooth, and the shorter fallopian tube has a 0.5 x 0.5 x 0.3 cm carty-pink cyst which contains a carty friable material. Sectioning reveals a carty-pink mucosa and a stellate lumen measuring 0.2 cm in diameter. Inspection Clerk sections are submitted. . A1: Tarrs fallopian tube, central cross-sections, margin (blue, en face), and bisected fimbria. A2: Longer fallopian tube, margin (blue), central cross-sections and bisected fimbria. (EA:[id number]) /MRV 09/19/2020 1052 Local . 02 Pathologist provided ICD-10: N83.8 . 02 CPT . 695753 Performed at: 01 [facility] [address] [place] [address] [address], [place], [place] [id number] MD Tee Bland MD Phone: [phone] Performed at: 02 [facility] [place] [id number] [place] [id number] MD Chen Curran MD Phone: [phone]
[2020-09-16] MEDS: IBUPROFEN 600 MG TABLET PO ×2 (03:21→13:58)
[2020-09-16 07:52] LABS: Add Manual Diff / Slide Review NO; Basophils Absolute Auto 0 /uL (0-100); Basophils Percent Auto 0.2 % (0-2); Eosinophils Absolute Auto 100 /uL (0-450); Eosinophils Percent Auto 0.5 % (2-4); Hemoglobin 10.2 g/dL (12.0-16.0); Lymphocytes Absolute Auto 2600 /uL (1100-4500); Lymphocytes Percent Auto 20.6 % (25-40); Mean Corpuscular HGB Conc 32.9 % (30-36); Mean Corpuscular Hemoglobin 28.2 PG (26-34); Mean Corpuscular Volume 85.8 fL (80-100); Monocytes Absolute Auto 800 /uL (0-900); Neutrophils Absolute Auto 9300 /uL (1500-7000); Neutrophils Percent Auto 72.7 % (50-75); Platelet Count 118 X10^3/uL (150-400); Red Blood Cell Count 3.61 X10^6/uL (4.0-5.2); Red Cell Distribution Width 14.1 % (11.6-14.8); White Blood Cell Count 12.8 X10^3/uL (4.5-11.0)
[2020-09-16] MEDS: LACTATED RINGERS 1,000 ML 1000 ML IV (10:43)
--- NOTE | 2020-09-16 10:47 | PM.PREOP ---
Pre-operative Note COVID-19 COVID-19 status: Negative Result date/Date tested (Pos, Neg/Pending): 09/15/20 Interval Note History & Physical reviewed/Exam performed by Physician: Yes Changes to H&P: Yes H&P completed within 30 days and has changed as indicated here:: s/p vaginal delivery
[2020-09-16 11:30] VITALS: BMI 25.5
[2020-09-16 11:55] VITALS: BP 111/73; PULSE 65; RESP 16; TEMP 36.9; O2SAT 99
[2020-09-16] MEDS: CEFAZOLIN 1 GM VIAL 2 GM IV (12:10)
[2020-09-16] MEDS: LACTATED RINGERS 1,000 ML 42 ML IV (12:15)
--- NOTE | 2020-09-16 12:20 | SUR.OPER ---
Supine on padded OR bed, head on pillow, arms secured on padded arm boards at <90 degrees abduction, legs uncrossed, safety belt at thigh, tape over blanket over lower legs.
[2020-09-16] MEDS: BUPIVACAINE 0.25% W/ EPI 30 ML VIAL INJ (12:28)
[2020-09-16 12:37] VITALS: BP 118/82; PULSE 74; RESP 13; TEMP 36.1; O2SAT 100
--- NOTE | 2020-09-16 12:51 | PM.OP.1 ---
Operative Date/Time/Diagnoses Date of procedure: 09/16/20 Time of procedure: 12:52 Pre-op diagnosis: Sterilization Post-op diagnosis: same Procedure & Clinicians Procedure: Mini-laparotomy bilateral tubal ligation Same procedure as scheduled: Yes Indications: Sterilization Surgeon: Tara Schaeffer Click Yes if Unassisted: Yes Anesthesia Type: General and Spinal Operative Notes Findings: Normal tubes and ovaries bilaterally Closure Type: primary Specimen(s): other (Segments of bilateral fallopian tubes) Estimated Blood Loss (mL): 2 Blood products transfused: none Procedure in detail: Patient was brought to the operating room where she underwent a spinal for anesthesia. She was placed in a supine position and prepped and draped in the usual sterile fashion. Patient had warming with blankets, pulsatile stockings in place and functional. Patient had 2 g of Ancef in prior to beginning of the case. Patent patient did not have good pain relief with the spinal so she underwent a general anesthesia. The area of the umbilical incision was injected with 0.25% Marcaine. An incision was made with a scalpel which was taken down to the fascia with blunt dissection. The fascia was incised transversely. The perineum entered sharply with no apparent damage to internal structures. The left fallopian tube was grasped with a Rosalie and a section including the fimbriated end was tied off x2 with 0 plain suture. This tube segment was removed with scissors. Adequate hemostasis was noted. The tube was allowed to fall back in the abdomen. Same procedure was performed on the right side. The fascial layer was closed with 0 Vicryl suture. Skin was closed with 4-0 Vicryl suture. Patient went to recovery room in good condition. Counts of instruments and sponges were correct. Complications: none Post-operative Condition: stable Disposition: same day surgery Plan for aftercare: Home when awake and stable
[2020-09-16 12:53] VITALS: BP 133/89; PULSE 61; RESP 17; O2SAT 100
[2020-09-16 12:55] VITALS: BP 134/87; PULSE 60; RESP 21; O2SAT 100
[2020-09-16 13:03] VITALS: BP 136/85; PULSE 68; RESP 16; O2SAT 98
--- NOTE | 2020-09-16 13:06 | P.DS_ITS ---
Discharge Providers Provider Date of admission: 09/15/20 09:32 Discharge Date: 09/16/20 Primary care physician: ISAMAR Reza Consults: 09/15/20 09:37 Consult to Anesthesiology Urgent Comment: Consulting Provider: Anesthesiologist Reason for consultation: Epidural Has provider been notified: No 09/16/20 18:55 Consult to Qa Manager Routine Comment: Discharge provider: Tara Schaeffer MD Summary Hospital Course Date Patient Seen: 09/16/20 Time Patient Seen: 13:07 Diagnoses: 39 week gestation with spontaneous vaginal delivery and tubal ligation Hospital Course: Patient arrived on Labor and delivery for induction for distance from the hospital. She received Pitocin for induction. She had a spontaneous vaginal delivery with repair of a first-degree perineal tear. She had a tubal ligation. She is urinating and ambulating well. Tolerating regular diet. Pain is under control. is going well. Peripartum Data Delivery Method: Natural Vaginal Laceration Description: Perineal - 1st Degree Procedures: Pitocin induction, spontaneous vaginal delivery with repair of first-degree tear, post mini laparotomy tubal ligation complications: none [place] 1: Gender: Female Disposition of : home Discharge Diagnosis (1) Vaginal delivery: Status: Acute (2) Sterilization: Status: Acute Status at Discharge Cognitive/behavioral status at discharge: oriented Functional status at discharge: independent ambulation Overall status at discharge: patient is progressing back to baseline Time Spent with Patient Time attestation: Total time spent providing and/or coordinating discharge services: Time spent: Less than 30 minutes Objective Labs Result Diagrams: 09/16/20 07:15 Labs: Laboratory Results - last 24 hr 09/15/20 09/16/20 10:30 07:15 WBC 12.8 H D RBC 3.61 L Hgb 10.2 L Hct 31.0 L MCV 85.8 MCH 28.2 MCHC 32.9 RDW 14.1 Plt Count 118 L Neut % (Auto) 72.7 Lymph % (Auto) 20.[address] [place] % (Auto) 6.0 Eos % (Auto) 0.5 L Baso % (Auto) 0.2 Neut # (Auto) 9300 H Lymph # (Auto) 2600 [place] # (Auto) 800 Eos # (Auto) 100 Baso # (Auto) 0 SARS-CoV-2 (PCR) Negative Exam Vital Signs (past 8 hours): - 09/16/20 11:55 09/16/20 12:37 09/16/20 12:53 Temperature 98.5 F 97 F L Pulse Rate 65 74 61 Respiratory Rate 16 13 17 Blood Pressure 111/73 118/82 133/89 Pulse Oximetry 99 100 100 09/16/20 12:55 09/16/20 13:03 Temperature Pulse Rate 60 68 Respiratory Rate 21 16 Blood Pressure 134/87 136/85 Pulse Oximetry 100 98 Oxygen Delivery Method Room Air Narrative Exam Narrative: Patient's abdomen is soft, nontender. Umbilical incision is clean, dry, intact. Uterus is firm, at U, minimally tender. Mild lochia. Perineal repair is intact. Extremities without edema and nontender. Patient is O positive, rubella immune, she received Tdap in the 3rd trimester. Discharge Plan Discharge Plan Patient Disposition: Home Discharge orders & Medications Prescriptions: New hydrocodone-acetaminophen 5-325 mg Tablet 1 tab PO Q4HR PRN (Reason: Pain, Moderate (4-6)) Qty: 15 RF: 0 ibuprofen 600 mg Tablet 600 mg PO Q6HR PRN (Reason: Pain, Mild (1-3)) Qty: 20 RF: 0 Continued prenat.vits,oleksandr,gdo-hgag-htwdq Tablet 1 tab PO DAILY Qty: 90 RF: 3 sertraline 50 mg tablet 50 mg PO DAILY Qty: 30 RF: 6 omeprazole 40 mg capsule,delayed release(DR/EC) 40 mg PO DAILY Qty: 30 RF: 3 ferrous sulfate 325 mg (65 mg iron) Tablet 325 mg PO BIDWM Qty: 60 RF: 0 Follow up/Referrals: Tara Schaeffer MD [Physician] - 6 Weeks Aubrie Abdi ARNP [Primary Care Provider] - Diet/Activity/Treatments Diet: Regular Activity: Nothing in vagina for 6 weeks Skin/Wound/Dressing Care Report to your healthcare provider any signs of infection, such as:: chills, fever and unusual redness Dressing: No dressing needed. Surgical glue will fall off on its own. Discharge Data Primary Care Provider: Aubrie Abdi
[2020-09-16] MEDS: HYDROCODONE/ACET 5/325 TABLET 1 TAB PO (13:07)
[2020-09-16] MEDS: ONDANSETRON 4 MG/2 ML INJ IV (13:08)
[2020-09-16] MEDS: ACETAMINOPHEN 325 MG TABLET 650 MG PO (17:30)
[2020-09-16] MEDS: FERROUS SULFATE 325 MG TABLET PO (17:30)
[2020-09-16 17:34] VITALS: BP 118/72; PULSE 67; RESP 16; TEMP 36.6
== END 2020-09-16 18:45 | disposition home or self-care (01) | DRG 798 ==
PROVIDERS: Admitting Provider Specialist; PCP Registered Nurse; Referring Provider Specialist; Visit Provider Specialist
PROC: 0U570ZZ Destruction of Bilateral Fallopian Tubes, Open Approach (ICD-10-PCS; CPT 58605; principal; 2020-09-16 12:30)
DX: O70.0 First degree perineal laceration during delivery (principal); Z30.2 Encounter for sterilization; Z37.0 Single live birth; Z3A.39 39 weeks gestation of pregnancy; Z20.822 Contact with and (suspected) exposure to COVID-19
CPT/HCPCS: 36415; 58605; 59050; 59410; 85025; 86850; 86900; 86901; 87635; C9803; G0379; J0690; J2250; J2405; J2590; J2704; J3010